=== PATIENT | female | born 1990 | race Asian ===

== ENCOUNTER 2016-08-25 10:31 | Emergency (ER) | payer MEDICAID ==
[~2016-08-25] VITALS: Ht 160 cm; Wt 59.4 kg
[2016-08-25] MEDS ORDERED: NKM (10:47)
[2016-08-25 11:15] LABS: APPEARANCE,URINE CLEAR; KETONES,URINE NEGATIVE (NEGATIVE); LEUKOCYTE ESTERASE ,URINE 3+ (NEGATIVE); NITRITE,URINE NEGATIVE (NEGATIVE); PH,URINE 6 (4.5-8.0); PROTEIN,URINE NEGATIVE (NEGATIVE); UROBILINOGEN,URINE NORMAL MG/DL (0.0-1.0)
[2016-08-25 11:28] LABS: BACTERIA,URINE FEW /HPF; MUCUS,URINE FEW /LPF (NONE/OCC); SQUAMOUS EPITHELIAL CELL,UR FEW /LPF (NONE/OCC)
[2016-08-25] MEDS ORDERED: NITROFURANTOIN100 M2 ORAL (11:34)
[2016-08-25 11:46] VITALS: BP_SYST 108; BP_SYST 120; BP_DIAS 69
--- NOTE | 2016-08-25 11:50 | Emergency Room Report ---
History of Present Illness General Chief Complaint: Abdominal Pain Source: Patient Present Illness HPI 26YO F with 1 month of dysuria, polyuria. Didnt seek medical attention previously because she just came from [facility] and was waiting for "health care benefits." Denies abd pain, flank pain, fever/chills, other medical problems. Allergies: Coded Allergies: No Known Allergies (Unverified , 08/25/16) Patient History Past Medical History: none Past Surgical History: none Pertinent Family History: none Social History: Denies: alcohol use, drug use, smoking Last Menstrual Period: 08/05/16 Now: No : 0 Para: 0 Immunizations: UTD Reviewed Nursing Documentation: PMH: Agreed, PSxH: Agreed Nursing Documentation-PMH Past Medical History: No Stated History Review of Systems All Other Systems: negative except mentioned in HPI Physical Exam Vital Signs Date Time Temp Pulse Resp B/P Pulse Ox O2 Delivery O2 Flow Rate FiO2 08/25/16 10:40 98.2 86 16 108/69 98 Sp02 EP Interpretation: reviewed, normal General Appearance: normal inspection, well appearing, no apparent distress, alert, GCS 15, non-toxic Head: normocephalic, atraumatic Eyes: bilateral eye EOMI, bilateral eye PERRL ENT: normal ENT inspection, hearing grossly normal, normal voice Neck: normal inspection, full range of motion, supple, no bony tend Respiratory: normal inspection, lungs clear, normal breath sounds, no respiratory distress, no retraction, no wheezing Cardiovascular #1: regular rate, rhythm, no edema Gastrointestinal: normal inspection, normal bowel sounds, non tender, soft, no guarding, no hernia Genitourinary: no CVA tenderness Musculoskeletal: normal inspection, back normal, normal range of motion, Sara' s Sign negative Neurologic: normal inspection, alert, oriented x3, responsive, 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, motor strength/tone normal, speech normal Psychiatric: normal inspection, judgement/insight normal, mood/affect normal Skin: normal inspection Lymphatic: normal inspection Medical Decision Making Diagnostic Impression: Primary Impression: Urinary tract infection Qualified Codes: N30.01 - Acute cystitis with hematuria ER Course Not UA grossly infected Rx Macrobid DC home Last Vital Signs Date Time Temp Pulse Resp B/P Pulse Ox O2 Delivery O2 Flow Rate FiO2 08/25/16 11:46 98.2 16 108/69 98 08/25/16 10:40 86 Status: improved Disposition: HOME, SELF-CARE Condition: Improved Scripts Nitrofurantoin Monohyd/M-Cryst* (MACROBID 100 MG*) 100 Mg Capsule 100 MG ORAL EVERY 12 HOURS for 7 Days, #14 CAP Prov: SHAHRAM JONES M.D. 08/25/16 Patient Instructions: Dysuria SHAHRAM JONES M.D. Aug 25, 2016 11:49
== END 2016-08-25 11:51 | disposition home or self-care (01) ==
LOC: EMR 11:06
DX: N39.0 Urinary tract infection, site not specified (principal)
CPT/HCPCS: 81003; 81025; 87086; 99283

== ENCOUNTER 2016-10-23 17:46 | Emergency (ER) | payer MEDICAID, OTHER ==
[~2016-10-23] VITALS: Ht 160 cm; Wt 59.0 kg
[~2016-10-23 17:46] MED LIST: NITROFURANTOIN100 M2 ORAL; NKM
[2016-10-23] MEDS ORDERED: Lidocaine 1% MPF 10mg/ml 5ml IM ONE (18:00)
[2016-10-23] MEDS ORDERED: Azithromycin 250mg tab ORAL ONE (18:00)
[2016-10-23 18:15] VITALS: BP 131/79
[2016-10-23 18:19] LABS: APPEARANCE,URINE CLEAR; KETONES,URINE NEGATIVE (NEGATIVE); LEUKOCYTE ESTERASE ,URINE NEGATIVE (NEGATIVE); NITRITE,URINE NEGATIVE (NEGATIVE); PH,URINE 7 (4.5-8.0); PROTEIN,URINE NEGATIVE (NEGATIVE); UROBILINOGEN,URINE NORMAL MG/DL (0.0-1.0)
[2016-10-23 18:50] VITALS: BP 131/79
--- NOTE | 2016-10-23 21:03 | Emergency Room Report ---
History of Present Illness General Chief Complaint: Female Urogenital Problems Source: Patient Present Illness HPI The patient is a 26-year-old female presenting for concern for STD. The patient was seen in this emergency Department and treated for UTI 2 months prior. She states that those urinary symptoms resolved but she has not been sexually active with a male that she is concerned for STD with. She denies symptoms such as dysuria, hematuria, increased urinary frequency, vaginal discharge, N, V, F Allergies: Coded Allergies: No Known Allergies (Unverified , 08/25/16) Patient History Past Medical History: see triage record Pertinent Family History: none Last Menstrual Period: 10/16/16 Now: No Reviewed Nursing Documentation: PMH: Agreed, PSxH: Agreed Nursing Documentation-PMH Past Medical History: No Stated History Review of Systems All Other Systems: negative except mentioned in HPI Physical Exam Vital Signs Date Time Temp Pulse Resp B/P Pulse Ox O2 Delivery O2 Flow Rate FiO2 10/23/16 17:49 98.1 85 17 131/79 97 Room Air Sp02 EP Interpretation: reviewed, normal General Appearance: no apparent distress, alert, GCS 15, non-toxic Head: normocephalic, atraumatic Eyes: bilateral eye PERRL, bilateral eye normal inspection ENT: hearing grossly normal, normal pharynx, no angioedema, normal voice Neck: full range of motion, supple/symm/no masses Respiratory: chest non-tender, lungs clear, normal breath sounds, speaking full sentences Gastrointestinal: normal bowel sounds, non tender, soft, no mass, non-distended , no guarding, no rebound Genitourinary: normal inspection, no CVA tenderness Musculoskeletal: back normal, gait/station normal, normal range of motion, non- tender Neurologic: alert, oriented x3, responsive, motor strength/tone normal, sensory intact, speech normal Psychiatric: judgement/insight normal, memory normal, no suicidal/homicidal ideation, anxious Skin: normal color, no rash, warm/dry, well hydrated Lymphatic: no adenopathy Medical Decision Making PA Attestation Dr. Arteaga is my supervising physician. Patient management was discussed with my supervising physician Diagnostic Impression: Primary Impression: Concern about STD in female without diagnosis ER Course The patient is a 26-year-old female presenting for concern for STD Differential diagnosis considered but not limited to: STD, UTI, vaginitis, pyelonephritis, PE: Vitals WNL. NAD. Abdomen: Normal appearance. Non distended. No ecchymosis. Normal BS. Non TTP. No McBurney point tenderness. No guarding. No CVA tenderness The pt is treated for STD with azithromycin and Rocephin UA unremarkable She will be SC'ed home and is given information on safe sex. ER precautions given Laboratory Tests Test 10/23/16 18:00 Urine Color Pale yellow Urine Appearance Clear Urine pH 7 (4.5-8.0) Urine Specific [place] 1.010 (1.005-1.035) Urine Protein Negative (NEGATIVE) Urine Glucose (UA) Negative (NEGATIVE) Urine Ketones Negative (NEGATIVE) Urine Occult Blood Negative (NEGATIVE) Urine Nitrite Negative (NEGATIVE) Urine Bilirubin Negative (NEGATIVE) Urine Urobilinogen Normal MG/DL (0.0-1.0) Urine Leukocyte Esterase Negative (NEGATIVE) Urine HCG, Qualitative Negative Lab Results Impression unremarkable Last Vital Signs Date Time Temp Pulse Resp B/P Pulse Ox O2 Delivery O2 Flow Rate FiO2 10/23/16 18:50 98.1 17 131/79 97 Room Air 10/23/16 17:49 85 Status: improved Disposition: HOME, SELF-CARE Condition: Improved Patient Instructions: Safe Sex Additional Instructions: I discussed my findings with the patient. All questions and concerns have been answered. Treatment and medication compliance have been addressed. I advised the patient that they need to follow up with PMD in 3-5 days. Return to ED if symptoms worsen, new symptoms arise, or if needed for any reason. Patient verbalized understanding of discharge instructions. NEHAL SAMAYOA Oct 23, 2016 21:03
== END 2016-10-23 18:50 | disposition home or self-care (01) ==
LOC: EMR 18:15
DX: Z77.29 Contact with and (suspected) exposure to other hazardous substances (principal); Z87.440 Personal history of urinary (tract) infections
CPT/HCPCS: 81003; 81025; 96372; 99283; J0696; Q0144